=== PATIENT | female | born 2000 | race African-American/Black ===

== ENCOUNTER 2024-01-07 15:42 | Emergency (ER) | payer MEDICAID ==
[~2024-01-07] VITALS: Ht 162.6 cm; Wt 98.0 kg
[2024-01-07 15:58] VITALS: O2SAT 100
[2024-01-07] MEDS: LIDOCAINE HCL 1% 20ML VIAL (Pyxis) INJ INFIL ONE (17:45)
[2024-01-07] MEDS ORDERED: IBUP-2030 MT (19:18)
[2024-01-07] MEDS ORDERED: AMOX1TAB16 MT (19:18)
[2024-01-07 19:42] VITALS: BP 141/91; PULSE 78; RESP 18; TEMP 98.4
== END 2024-01-07 19:57 | disposition home or self-care (01) ==
LOC: ER 15:42
DX: L72.3 Sebaceous cyst (principal)
CPT/HCPCS: 10060; 99283; J3490; Z7610 ×2; 99282

== ENCOUNTER 2024-01-10 12:30 | Emergency (ER) | payer MEDICAID ==
[~2024-01-10] VITALS: Ht 170.2 cm; Wt 98.0 kg
[~2024-01-10 12:30] MED LIST: AMOX1TAB16 MT; IBUP-2030 MT
[2024-01-10 13:21] VITALS: O2SAT 100
[2024-01-10] MEDS ORDERED: BO1 TP (13:28)
[2024-01-10 13:58] VITALS: BP 124/74; PULSE 99; RESP 16; TEMP 98.5
== END 2024-01-10 14:12 | disposition home or self-care (01) ==
LOC: ER 13:55
DX: L72.3 Sebaceous cyst (principal); Z48.02 Encounter for removal of sutures
CPT/HCPCS: 99282

== ENCOUNTER 2025-07-16 17:52 | Emergency (ER) | payer MEDICAID ==
[~2025-07-16] VITALS: Ht 170.2 cm; Wt 100.0 kg
[~2025-07-16 17:52] MED LIST changes: +BO1 TP
[2025-07-16 17:58] VITALS: O2SAT 100
[2025-07-16] MEDS ORDERED: AMOX1TAB16 MT (21:52)
[2025-07-16 22:43] VITALS: BP 133/107; PULSE 88; RESP 16; TEMP 37.3; O2SAT 100
== END 2025-07-16 22:45 | disposition home or self-care (01) ==
LOC: ER 17:52
DX: I88.9 Nonspecific lymphadenitis, unspecified (principal); F19.90 Other psychoactive substance use, unspecified, uncomplicated
CPT/HCPCS: 99283